=== PATIENT | female | born 1960 | race Caucasian/White ===

== ENCOUNTER → 2018-02-26 | Outpatient (CLI) | payer OTHER ==
--- NOTE | 2018-02-26 09:43 | WOMENS IMAGING REPORT ---
EXAM DESCRIPTION: 3D SCREENING MAMMO BILAT COMPLETED DATE/TIME: 02/26/2018 9:18 am REASON FOR STUDY: SCREENING MAMMO Z12.31 ENCNTR SCREEN MAMMOGRAM FOR MALIGNANT NEOPLASM OF KRZYSZTOF COMPARISON: Baseline study TECHNIQUE: Standard craniocaudal and mediolateral oblique views of each breast recorded using digita l acquisition and breast tomosynthesis. LIMITATIONS: None. FINDINGS: No masses, calcifications or architectural distortion. No areas of suspicion. Read with the assistance of CAD. .[facility] - R2 Cenova Version 1.3 .[facility] - R2 Cenova Version 1.3 .[facility] - R2 Cenova Version 2.4 .[facility] - R2 Cenova Version 2.4 .[facility] - R2 Platen Grinder Version 9.2 IMPRESSION: NORMAL MAMMOGRAM. BIRADS 1. BREAST DENSITY: b. There are scattered areas of fibroglandular density. BIRAD: 1 NEGATIVE RECOMMENDATION: ROUTINE SCREENING Please continue yearly bilateral screening tomosynthesis in February 2019 COMMENT: The patient has been notified of the results by letter per MQSA requirements. Additional no tification policies are in place for contacting patient with suspicious or incomplete findings. Quality ID #[id number]: The [employer] recommends an annual screening mammogram for women aged 40 years or over. This facility utilizes a reminder system to ensure that all patients receive reminder letters, and/or direct phone calls for appointments. This includes reminders for routine scr eening mammograms, diagnostic mammograms, or other Breast Imaging Interventions when appropriate. Th is patient will be placed in the appropriate reminder system. The [employer] (ACR) has developed recommendations for screening MRI of the breast s in certain patient populations, to be used in conjunction with mammography. Breast MRI surveillanc e may be appropriate for women with more than 20% lifetime risk of developing breast cancer as deter mined by genetic testing, significant family history of the disease, or history of mantle radiation f or Hodgkins Disease. ACR Practice Guidelines 2008. DBT Technology DBT is a type of tomographic mammography. With conventional mammography, overlapping breast tissue ma y make lesions difficult to detect, even with good compression. DBT uses an x-ray tube that rotates a round the breast, taking images at different angles. These images are then combined to create thin sl ices of the breast that the radiologist can view as a 3D reconstruction. The [employer] unit can perform full-field digital mammograms (2D imaging); or DBT (3D imaging); or both, in a combination mode that quickly performs both the mammogram and the tomosynthesis scan while the breast is still compressed. PQRS 6045F: Fluoroscopic imaging is not utilized for breast tomosynthesis. TECHNICAL DOCUMENTATION: FINDING NUMBER: (1) ASSESSMENT: (1) JOB ID: [id number] Simple- All Rights Reserved Reading location - IP/workstation name: [email or web address]
== END ==
LOC: WI 08:32
PROVIDERS: ATTEND Nurse Practitioner Primary Care
DX: Z12.31 Encounter for screening mammogram for malignant neoplasm of breast (principal)
CPT/HCPCS: 77063; 77067

== ENCOUNTER 2020-05-26 01:23 | Inpatient (IN) | payer OTHER ==
--- NOTE | 2020-05-26 04:22 | RADIOLOGY REPORT (SQ) ---
CHEST X-RAY 1 VIEW on 05/26/2020 at 3:46 AM CLINICAL INDICATION: Shortness of breath, positive COVID 19 COMPARISON: None FINDINGS: There are bilateral mid and lower lung opacities consistent with COVID 19 pneumonia. Trace pleural effusions may be present. Borderline cardiomegaly is noted. Hilar and mediastinal contours are within normal limits. No bony abnormality is noted. IMPRESSION: Findings consistent with COVID 19 pneumonia.
[2020-05-26 04:55] LABS: ABSOLUTE BASOPHILS # (AUTO) 0.1 10^3/uL (0.0-0.2); ABSOLUTE LYMPHOCYTES (AUTO) 0.9 10^3/uL (0.5-4.7); ABSOLUTE MONOCYTES (AUTO) 0.5 10^3/uL (0.1-1.4); ABSOLUTE NEUT (AUTO) 6.3 10^3/uL (1.7-8.2); BASOPHILS % (AUTO) 0.8 % (0-2); EOSINOPHILS % (AUTO) 0.1 % (0-6); HEMATOCRIT 43.5 % (36.0-47.0); HEMOGLOBIN 14.4 g/dL (12.0-15.5); LYMPHOCYTES % (AUTO) 11.9 % (13-45); MEAN CORPUSCULAR HEMOGLOBIN 26.4 pg (27.0-33.4); MEAN CORPUSCULAR HGB CONC 33.1 g/dL (32.0-36.0); MEAN CORPUSCULAR VOLUME 80 fl (80-97); MONOCYTES % (AUTO) 6.3 % (3-13); PLATELET COUNT 471 10^3/uL (150-450); RED BLOOD COUNT 5.46 10^6/uL (3.72-5.28); RED CELL DISTRIBUTION WIDTH 15.2 % (11.5-14.0); SEGMENTED NEUTROPHILS % (AUTO) 80.9 % (42-78); TOTAL CELLS COUNTED % (AUTO) 100 %; WHITE BLOOD COUNT 7.8 10^3/uL (4.0-10.5)
[2020-05-26 04:58] LABS: VENOUS BLOOD BASE EXCESS -0.6 mmol/L; VENOUS BLOOD HCO3 24.1 mmol/L (20-32); VENOUS BLOOD PH 7.4 (7.30-7.42)
[2020-05-26 05:02] LABS: PROTHROMBIN TIME 13.4 SEC (11.4-15.4)
[2020-05-26 05:03] LABS: PARTIAL THROMBOPLASTIN TIME 34.7 SEC (23.5-35.8)
[2020-05-26 05:16] LABS: D-DIMER < 0.27 ug/mL (0.00-0.50)
[2020-05-26 05:27] LABS: ALBUMIN 4.2 g/dL (3.5-5.0); ALKALINE PHOSPHATASE 124 U/L (38-126); ANION GAP 11 (5-19); ASPARTATE AMINO TRANSFERASE 79 U/L (14-36); BILIRUBIN,DIRECT 0.4 mg/dL (0.0-0.4); BILIRUBIN,TOTAL 0.6 mg/dL (0.2-1.3); BLOOD UREA NITROGEN 13 mg/dL (7-20); CALCIUM 9.9 mg/dL (8.4-10.2); CARBON DIOXIDE 25 mmol/L (22-30); CHLORIDE 105 mmol/L (98-107); GLUCOSE 124 mg/dL (75-110); POTASSIUM 4.8 mmol/L (3.6-5.0); TOTAL PROTEIN 7.7 g/dL (6.3-8.2)
[2020-05-26] MEDS ORDERED: ACETAMINOPHEN 325 MG TABLET PO PRN (05:46)
[2020-05-26] MEDS ORDERED: ONDANSETRON HCL INJ/PF 4 MG/2 ML SDV IV PRN (05:46)
[2020-05-26] MEDS ORDERED: IVERMECTIN 3 MG TABLET PO ONE (05:51)
[2020-05-26] MEDS ORDERED: DEXAMETHASONE SOD PHOS INJ 10 MG/1 ML VIAL IV SCH (06:01)
--- NOTE | 2020-05-26 06:31 | PDOC H&P ---
History of Present Illness Admission Date/PCP: MANUELA ORTIZ NP Patient complains of: Shortness of breath History of Present Illness: ROMERO BACA is a 59 year old female with a history of hypertension and depression who tested positive for COVID-19 on 05/18/2020 now presents to the ED with a progressively worsening shortness of breath. Patient reports that symptoms started about 10 days back and she had fever, generalized body aches, sore throat and dry cough. She states that she was apparently feeling well and her cough was improving but 1 day ago has shortness of breath started getting worse and when she checked here oxygen saturation at home it was ranging around 88 to 90% and came to the ED for further evaluation. Patient states that she still continues to have a dry cough and had a spike of fever about a day ago. She also has associated congestion, and has lost her sense of smell and taste. She denies any nausea, vomiting, abdominal pain, diarrhea or any change in her urinary habits. She was given 1 dose of prednisone yesterday by her primary care before presentation to the ED. Past Medical History Cardiac Medical History: Reports: Hypertension Social History Information Source: Patient Lives with: Family Smoking Status: Never Smoker Frequency of Alcohol Use: None Drugs: None - Advance Directive Resuscitation Status: Full Code Family History Family History: None Parental Family History Reviewed: Yes Children Family History Reviewed: Yes Sibling(s) Family History Reviewed.: Yes Medication/Allergy Allergies/Adverse Reactions: No Known Allergies Allergy (Unverified 05/26/20 05:32) Review of Systems Constitutional: PRESENT: as per HPI Eyes: ABSENT: visual disturbances Ears: ABSENT: hearing changes Cardiovascular: PRESENT: as per HPI. ABSENT: edema, orthropnea, palpitations Respiratory: PRESENT: as per HPI Gastrointestinal: ABSENT: abdominal pain, constipation, diarrhea, hematemesis, hematochezia, nausea, vomiting Genitourinary: ABSENT: dysuria, hematuria Musculoskeletal: ABSENT: joint swelling Integumentary: ABSENT: rash, wounds Neurological: ABSENT: abnormal gait, abnormal speech, confusion, dizziness, focal weakness, syncope Psychiatric: ABSENT: anxiety, depression, homidical ideation, suicidal ideation Endocrine: ABSENT: cold intolerance, heat intolerance, polydipsia, polyuria Hematologic/Lymphatic: ABSENT: easy bleeding, easy bruising Physical Exam Vital Signs: Temp Pulse Resp BP Pulse Ox 97.7 F 104 H 22 H 130/103 H 92 05/26/20 01:29 05/26/20 01:29 05/26/20 05:01 05/26/20 05:01 05/26/20 05:01 Intake & Output 05/24/20 05/25/20 05/26/20 06:59 06:59 06:59 Weight 86.2 kg Additional comments: GENERAL APPEARANCE: Alert and oriented x3, comfortably lying on her bed, saturating above 95% on 2 L HEENT: Normocephalic and atraumatic. No scleral icterus. Moist oral mucosa NECK: Supple. No lymphadenopathy or tenderness. No carotid bruit. No JVD CHEST: Symmetric. Nontender to palpation. LUNGS: Clear with good air entry bilaterally. No wheezing or crackles HEART: Regular rate and rhythm with normal S1 and S2. No murmurs, gallops, or rubs. ABDOMEN: soft, active bowel sounds, no direct or rebound tenderness. No organomegaly detected. No CVA tenderness EXTREMITIES: No cyanosis, clubbing, or edema. MUSCULOSKELETAL: No deformity, atrophy or swelling noted PSYCHIATRIC: Recent and remote memory is intact. Appropriate mood and affect. SKIN: Warm, dry, and well perfused. No lesions or rashes are noted. NEUROLOGIC: No focal sensory or motor deficits are noted. Results Laboratory Results: 05/26/20 04:22 05/26/20 04:22 05/26/20 05/26/20 05/26/20 04:22 04:22 04:22 WBC 7.8 RBC 5.46 H Hgb 14.4 Hct 43.5 MCV 80 MCH 26.4 L MCHC 33.1 RDW 15.2 H Plt Count 471 H Seg Neutrophils % 80.9 H VBG pH 7.40 VBG pCO2 40.0 VBG HCO3 24.1 VBG Base Excess -0.6 Sodium 140.7 Potassium 4.8 Chloride 105 Carbon Dioxide 25 Anion Gap 11 BUN 13 Creatinine 0.69 Est GFR ( Amer) > 60 Glucose 124 H Calcium 9.9 Total Bilirubin 0.6 AST 79 H Alkaline Phosphatase 124 Total Protein 7.7 Albumin 4.2 Impressions: Chest X-Ray 05/26/20 03:31 IMPRESSION: Findings consistent with COVID 19 pneumonia. Assessment and Plan - Diagnosis (1) Acute respiratory failure with hypoxia Is this a current diagnosis for this admission?: Yes Plan: Patient presents with worsening shortness of breath Tested positive for COVID-19 on 05/18 Oxygen saturation was 88 to 90% on room air presentation Currently requiring 2 L intranasal oxygen to maintain saturation above 94% Chest x-ray shows bilateral mid and lower lobe patchy opacities consistent with COVID-19 pneumonia Started on dexamethasone, zinc, vitamin C, vitamin D Gave first dose of ivermectin Ordered CRP, CK, LDH, ferritin levels Closely monitor respiratory parameters for any sign of decompensation (2) Pneumonia due to COVID-19 virus Is this a current diagnosis for this admission?: Yes Plan: Currently admitted with hypoxic respiratory failure from COVID-19 pneumonia Continue management of COVID-19 pneumonia as stated above (3) Hypertension Is this a current diagnosis for this admission?: Yes Plan: continue home medication, losartan 12.5 mg daily Low-sodium diet Continue monitoring vitals (4) Depression Is this a current diagnosis for this admission?: Yes Plan: Continue Wellbutrin (5) Obesity (BMI 30.0-34.9) Is this a current diagnosis for this admission?: Yes Plan: Encourage regular exercise and dietary modification to attain optimal weight - Time Time Spent with patient: 35 or more minutes Total Critical Time (Minutes): 45 Medications reviewed and adjusted accordingly: Yes Anticipated Discharge Disposition: Home, Self Care Anticipated Discharge Timeframe: within 72 hours - Inpatient Certification Based on my medical assessment, after consideration of the patient's comorbidities, presenting symptoms, or acuity I expect that the services needed warrant INPATIENT care.: Yes I certify that my determination is in accordance with my understanding of Medicare's requirements for reasonable and necessary INPATIENT services [42 CFR 412.3e].: Yes Medical Necessity: Failure to Improve With Outpatient Therapy, Need Close Monitoring Due to Risk of Patient Decompensation, Risk of Complication if Not Cared For in Hospital Post Hospital Care: D/C or Transfer Summary
--- NOTE | 2020-05-26 06:40 | ER Document Report ---
ED General - General Chief Complaint: Shortness Of Breath Stated Complaint: SHORTNESS OF BREATH Notes: 59-year-old female history of hypertension presents with worsening shortness of breath since Covid diagnosis approximately 8 days ago. Patient had onset of symptoms including cough fever malaise on May 16 and had positive Covid test on May 18. Patient has been monitoring symptoms at home and has been using pulse oximeter and when she felt worsening shortness of breath and pulse ox was 88-91 when she was at rest at home she came to the ED. Patient endorses dry cough. Patient denies any chest pain, weakness, dizziness, fainting, productive cough, fever, asthma/smoking/COPD history, lower extremity edema, DVT/PE/hypercoagulability history TRAVEL OUTSIDE OF THE [place] IN LAST 30 DAYS: No - Related Data Allergies/Adverse Reactions: No Known Allergies Allergy (Unverified 05/26/20 05:32) Home Medications: prednisone, nyqil, losartan, well butrin, nexium Past Medical History - General Information source: Patient - Social History Smoking Status: Never Smoker Lives with: Family Family History: None - Past Medical History Cardiac Medical History: Reports: Hx Hypertension Review of Systems - Review of Systems Notes: REVIEW OF SYSTEMS: CONSTITUTIONAL : Denies fever, chills, or sweats. EENT: + recent cold symptoms, denies throat pain CARDIOVASCULAR: Denies chest pain, KERWIN RESPIRATORY: + cough, + shortness of breath. GASTROINTESTINAL: Denies abdominal pain, nausea/vomiting. GENITOURINARY: Denies difficulty urinating, painful urination. MUSCULOSKELETAL: Denies neck pain, back pain. SKIN: Denies rash or skin lesions. HEMATOLOGIC : Denies easy bruising or bleeding. LYMPHATIC: Denies swollen, enlarged glands. NEUROLOGICAL: Denies headache, denies change in gait. Physical Exam - Vital signs Vitals: Temp Pulse Resp BP Pulse Ox 97.7 F 104 H 23 H 179/94 H 93 05/26/20 01:05/26/20 01:05/26/20 01:05/26/20 01:05/26/20 01:29 - Notes Notes: PHYSICAL EXAMINATION: GENERAL: Uncomfortable but nontoxic appearing middle-aged woman sitting up in stretcher with nasal cannula in place HEAD: Atraumatic, normocephalic. EYES: Pupils equal round and appropriate constriction, sclera anicteric, conjunctiva are normal. ENT: nares patent, moist mucous membranes. NECK: Normal range of motion, supple without lymphadenopathy LUNGS: Few scattered rhonchi bilaterally, no wheezing, good air movement, tachypneic, only able to say 2-3 words at a time without taking breath, abdominal muscle use, managing secretions, no tripoding HEART: Regular rate and rhythm without murmurs ABDOMEN: Soft, nontender, no guarding, no masses, no CVAT EXTREMITIES: Normal range of motion, no pitting or edema. No cyanosis. NEUROLOGICAL: Awake, alert, conversing appropriately, moves all extremities spontaneously. PSYCH: Normal mood, normal affect. SKIN: Warm, Dry, normal turgor, no rashes or lesions noted. Course - Re-evaluation Re-evalutation: 05/26/20 06:37 Patient with worsening shortness of breath with known Covid infection likely secondary to Covid pneumonia but given hypercoagulability associated with Covid infection I also obtain D-dimer to rule out PE. Given that patient has no other PE risk factors this is sufficient to rule out PE in the setting and D-dimer was negative. Patient feels significantly improved on nasal cannula and is maintaining normal saturations, but given that patient unable to speak in full sentences not appropriate for discharge at this time. Presented patient to Dr. Osorio who has accepted patient to medicine. No signs of closely impending respiratory failure at this time, but this may change and requires further observation inpatient. - Vital Signs Vital signs: Temp Pulse Resp BP Pulse Ox 97.7 F 104 H 22 H 130/103 H 92 05/26/20 01:29 05/26/20 01:29 05/26/20 05:01 05/26/20 05:01 05/26/20 05:01 - Laboratory Results Result Diagrams: 05/26/20 04:22 05/26/20 04:22 Laboratory Results Interpreted: 05/26/20 05/26/20 04:22 04:22 RBC 5.46 H MCH 26.4 L RDW 15.2 H Plt Count 471 H Lymph % (Auto) 11.9 L Seg Neutrophils % 80.9 H Glucose 124 H AST 79 H ALT 64 H Critical Laboratory Results Reviewed: No Critical Results - Radiology Results Critical Radiology Results Reviewed: No Critical Results Discharge - Discharge Clinical Impression: Pneumonia due to COVID-19 virus Disposition: ADMITTED INPATIENT [facility] Medical [facility]
--- NOTE | 2020-05-26 09:11 | PDOC PROGRESS REPORT ---
Subjective Date:: 05/26/20 Subjective:: Patient is resting in bed. She is on nasal cannula. She states that she feels better than yesterday. Her mouth is dry but otherwise she has no new complaints. Reason For Visit: ACUTE HYPOXIC RESPIRATORY FAILURE Physical Exam Vital Signs: Temp Pulse Resp BP Pulse Ox 97.7 F 104 H 22 H 130/103 H 92 05/26/20 01:29 05/26/20 01:29 05/26/20 05:01 05/26/20 05:01 05/26/20 05:01 Intake & Output 05/25/20 05/26/20 05/27/20 06:59 06:59 06:59 Weight 86.2 kg General appearance: PRESENT: cooperative, mild distress, well-developed Head exam: PRESENT: atraumatic, normocephalic Eye exam: PRESENT: conjunctiva pink, EOMI. ABSENT: scleral icterus Ear exam: PRESENT: normal external ear exam. ABSENT: bleeding, drainage Mouth exam: PRESENT: dry mucosa, tongue midline Respiratory exam: PRESENT: clear to auscultation rebeca, symmetrical, unlabored. ABSENT: rales, rhonchi, tachypnea, wheezes Cardiovascular exam: PRESENT: RRR, +S1, +S2. ABSENT: bradycardia, diastolic murmur, irregular rhythm, systolic murmur, tachycardia GI/Abdominal exam: PRESENT: normal bowel sounds, soft. ABSENT: ascites, distended, guarding, tenderness Rectal exam: PRESENT: deferred Gentrourinary exam: ABSENT: indwelling catheter Extremities exam: PRESENT: full ROM. ABSENT: clubbing, pedal edema Musculoskeletal exam: PRESENT: ambulatory, normal inspection. ABSENT: deformity, dislocation Neurological exam: PRESENT: alert, awake, oriented to person, oriented to place, oriented to time, oriented to situation, CN II-XII grossly intact. ABSENT: altered Psychiatric exam: PRESENT: appropriate affect. ABSENT: agitated, anxious Focused psych exam: ABSENT: catatonic, delusional, paranoid, restlessness Skin exam: PRESENT: dry, normal color, warm. ABSENT: rash Results Laboratory Results: 05/26/20 04:22 05/26/20 04:22 05/26/20 05/26/20 05/26/20 04:22 04:22 04:22 WBC 7.8 RBC 5.46 H Hgb 14.4 Hct 43.5 MCV 80 MCH 26.4 L MCHC 33.1 RDW 15.2 H Plt Count 471 H Seg Neutrophils % 80.9 H VBG pH 7.40 VBG pCO2 40.0 VBG HCO3 24.1 VBG Base Excess -0.6 Sodium 140.7 Potassium 4.8 Chloride 105 Carbon Dioxide 25 Anion Gap 11 BUN 13 Creatinine 0.69 Est GFR ( Amer) > 60 Glucose 124 H Calcium 9.9 Ferritin Total Bilirubin 0.6 AST 79 H Alkaline Phosphatase 124 C-Reactive Protein Total Protein 7.7 Albumin 4.2 05/26/20 04:22 WBC RBC Hgb Hct MCV MCH MCHC RDW Plt Count Seg Neutrophils % VBG pH VBG pCO2 VBG HCO3 VBG Base Excess Sodium Potassium Chloride Carbon Dioxide Anion Gap BUN Creatinine Est GFR ( Amer) Glucose Calcium Ferritin 115.00 Total Bilirubin AST Alkaline Phosphatase C-Reactive Protein 25.0 H Total Protein Albumin 05/26/20 04:22 Creatine Kinase 108 Impressions: Chest X-Ray 05/26/20 03:31 IMPRESSION: Findings consistent with COVID 19 pneumonia. Assessment and Plan - Diagnosis (1) Acute respiratory failure with hypoxia Is this a current diagnosis for this admission?: Yes (2) Pneumonia due to COVID-19 virus Is this a current diagnosis for this admission?: Yes (3) Hypertension Is this a current diagnosis for this admission?: Yes (4) Depression Qualifiers: Depression Type: unspecified Qualified Code(s): F32.9 - Major depressive disorder, single episode, unspecified Is this a current diagnosis for this admission?: Yes (5) Obesity (BMI 30.0-34.9) Is this a current diagnosis for this admission?: Yes (6) GERD (gastroesophageal reflux disease) Qualifiers: Esophagitis presence: without esophagitis Qualified Code(s): K21.9 - Gastro-esophageal reflux disease without esophagitis Is this a current diagnosis for this admission?: Yes - Plan Summary Summary: (1) Acute respiratory failure with hypoxia (2) Pneumonia due to COVID-19 virus (3) Hypertension (4) Depression (5) Obesity (BMI 30.0-34.9) (6) GERD 05/26/2020 Acute respiratory failure with hypoxia due to Covid pneumonia-I did change the dexamethasone to Solu-Medrol. I have ordered the second dose of ivermectin for tomorrow. We will continue on supplements and attempt to wean back to her home oxygen levels which I believe is 1 L/min. We will add Flonase. Hypertension-I am not sure why the initial blood pressures were so high. She does only take Lopressor 12.5 mg once a day. I have increased this to 25 mg. She does have as needed medications available if needed. Depression-continue Wellbutrin Obesity-BMI 33.7. Obesity is the known and significant risk factor for c omplications due to Covid pneumonia. Will monitor closely. Acid reflux-the patient is on Nexium at home. We will substitute pantoprazole. - Time Time Spent with patient: 25-34 minutes Medications reviewed and adjusted accordingly: Yes Anticipated Discharge Disposition: Home, Self Care Anticipated Discharge Timeframe: Unknown
[2020-05-26] MEDS ORDERED: FAMOTIDINE 20 MG TABLET PO SCH (10:00)
[2020-05-26] MEDS ORDERED: LOSARTAN POTASSIUM 25 MG TABLET PO SCH (10:00)
[2020-05-26] MEDS: BUPROPION HCL 100 MG TABLET PO SCH (10:54)
[2020-05-26] MEDS: LOSARTAN POTASSIUM 25 MG TABLET PO SCH (10:54)
[2020-05-26] MEDS: ASCORBIC ACID 500 MG TABLET PO SCH ×2 (10:54→17:21)
[2020-05-26] MEDS: CHOLECALCIFEROL (D3) 1,000 UNIT (25 MCG) TABLET PO SCH (10:54)
[2020-05-26] MEDS: METHYLPREDNISOLONE INJ 40 MG/1 ML SDV IV SCH ×2 (10:54→21:22)
[2020-05-26] MEDS: ZINC SULFATE 220 MG CAPSULE PO SCH (10:54)
[2020-05-26] MEDS: ENOXAPARIN SODIUM INJ 40 MG/0.4 ML DISP.SYRIN SUBCUT SCH (10:55)
[2020-05-26] MEDS: MELATONIN 5 MG TABLET PO SCH (21:22)
[2020-05-27 06:03] LABS: ABSOLUTE BASOPHILS # (AUTO) 0.3 10^3/uL (0.0-0.2); ABSOLUTE LYMPHOCYTES (AUTO) 1.4 10^3/uL (0.5-4.7); ABSOLUTE MONOCYTES (AUTO) 0.6 10^3/uL (0.1-1.4); ABSOLUTE NEUT (AUTO) 16.7 10^3/uL (1.7-8.2); BASOPHILS % (AUTO) 1.3 % (0-2); HEMATOCRIT 40.3 % (36.0-47.0); HEMOGLOBIN 13.4 g/dL (12.0-15.5); LYMPHOCYTES % (AUTO) 7.2 % (13-45); MEAN CORPUSCULAR HEMOGLOBIN 26.4 pg (27.0-33.4); MEAN CORPUSCULAR HGB CONC 33.2 g/dL (32.0-36.0); MEAN CORPUSCULAR VOLUME 80 fl (80-97); MONOCYTES % (AUTO) 3.2 % (3-13); PLATELET COUNT 511 10^3/uL (150-450); RED BLOOD COUNT 5.07 10^6/uL (3.72-5.28); RED CELL DISTRIBUTION WIDTH 14.8 % (11.5-14.0); SEGMENTED NEUTROPHILS % (AUTO) 88.3 % (42-78); TOTAL CELLS COUNTED % (AUTO) 100 %
[2020-05-27 06:07] LABS: WHITE BLOOD COUNT 18.9 10^3/uL (4.0-10.5)
[2020-05-27] MEDS: PANTOPRAZOLE SODIUM 40 MG TABLET.DR PO SCH (06:10)
[2020-05-27 06:16] LABS: ALBUMIN 3.9 g/dL (3.5-5.0); ALKALINE PHOSPHATASE 119 U/L (38-126); ANION GAP 12 (5-19); ASPARTATE AMINO TRANSFERASE 50 U/L (14-36); BILIRUBIN,DIRECT 0.2 mg/dL (0.0-0.4); BILIRUBIN,TOTAL 0.4 mg/dL (0.2-1.3); BLOOD UREA NITROGEN 20 mg/dL (7-20); CARBON DIOXIDE 22 mmol/L (22-30); CHLORIDE 104 mmol/L (98-107); GLUCOSE 180 mg/dL (75-110); POTASSIUM 4.6 mmol/L (3.6-5.0); TOTAL PROTEIN 7.2 g/dL (6.3-8.2)
[2020-05-27] MEDS ORDERED: IVERMECTIN 3 MG TABLET PO ONE (10:00)
[2020-05-27] MEDS: METHYLPREDNISOLONE INJ 40 MG/1 ML SDV IV SCH ×2 (11:05→21:15)
[2020-05-27] MEDS: LOSARTAN POTASSIUM 25 MG TABLET PO SCH (11:06)
[2020-05-27] MEDS: ENOXAPARIN SODIUM INJ 40 MG/0.4 ML DISP.SYRIN SUBCUT SCH (11:06)
[2020-05-27] MEDS: ZINC SULFATE 220 MG CAPSULE PO SCH (11:07)
[2020-05-27] MEDS: CHOLECALCIFEROL (D3) 1,000 UNIT (25 MCG) TABLET PO SCH (11:07)
[2020-05-27] MEDS: BUPROPION HCL 100 MG TABLET PO SCH (11:07)
[2020-05-27] MEDS: ASCORBIC ACID 500 MG TABLET PO SCH ×2 (11:07→17:00)
--- NOTE | 2020-05-27 13:44 | PDOC PROGRESS REPORT ---
Subjective Date:: 05/27/20 Subjective:: Patient was seen and examined at bedside. She was sitting in the chair on 2L of nasal cannula. She is doing well otherwise, in good spirits, has good appetite. Reason For Visit: ACUTE HYPOXIC RESPIRATORY FAILURE Physical Exam Vital Signs: Temp Pulse Resp BP Pulse Ox 98.6 F 76 20 148/80 H 96 05/27/20 11:41 05/27/20 11:41 05/27/20 11:41 05/27/20 11:41 05/27/20 11:41 Intake & Output 05/26/20 05/27/20 05/28/20 06:59 06:59 06:59 Intake Total 1442 Balance 1442 Weight 86.2 kg 85.9 kg General appearance: PRESENT: cooperative, mild distress Head exam: PRESENT: atraumatic, normocephalic Eye exam: PRESENT: EOMI, PERRLA Mouth exam: PRESENT: moist Neck exam: PRESENT: full ROM Respiratory exam: PRESENT: clear to auscultation rebeca, symmetrical, unlabored Cardiovascular exam: PRESENT: RRR, +S1, +S2 Pulses: PRESENT: +2 pedal pulses bilateral GI/Abdominal exam: PRESENT: normal bowel sounds, soft. ABSENT: rebound, tende rness Extremities exam: PRESENT: full ROM Musculoskeletal exam: PRESENT: full ROM Neurological exam: PRESENT: alert, awake, oriented to person, oriented to place, oriented to time, oriented to situation Psychiatric exam: PRESENT: normal mood Skin exam: PRESENT: normal color Results Laboratory Results: 05/27/20 05:23 05/27/20 05:23 05/27/20 05/27/20 05:23 05:23 WBC 18.9 H D RBC 5.07 Hgb 13.4 Hct 40.3 MCV 80 MCH 26.4 L MCHC 33.2 RDW 14.8 H Plt Count 511 H Seg Neutrophils % 88.3 H Sodium 137.8 Potassium 4.6 Chloride 104 Carbon Dioxide 22 Anion Gap 12 BUN 20 Creatinine 0.80 Est GFR ( Amer) > 60 Glucose 180 H Calcium 10.0 Magnesium 2.0 Total Bilirubin 0.4 AST 50 H Alkaline Phosphatase 119 Total Protein 7.2 Albumin 3.9 05/26/20 04:22 Creatine Kinase 108 Impressions: Chest X-Ray 05/26/20 03:31 IMPRESSION: Findings consistent with COVID 19 pneumonia. Assessment and Plan - Diagnosis (1) Acute respiratory failure with hypoxia Is this a current diagnosis for this admission?: Yes (2) Depression Qualifiers: Depression Type: unspecified Qualified Code(s): F32.9 - Major depressive disorder, single episode, unspecified Is this a current diagnosis for this admission?: Yes (3) GERD (gastroesophageal reflux disease) Qualifiers: Esophagitis presence: without esophagitis Qualified Code(s): K21.9 - Gastro-esophageal reflux disease without esophagitis Is this a current diagnosis for this admission?: Yes (4) Hypertension Is this a current diagnosis for this admission?: Yes (5) Obesity (BMI 30.0-34.9) Is this a current diagnosis for this admission?: Yes (6) Pneumonia due to COVID-19 virus Is this a current diagnosis for this admission?: Yes - Plan Summary Summary: (1) Acute respiratory failure with hypoxia (2) Pneumonia due to COVID-19 virus (3) Hypertension (4) Depression (5) Obesity (BMI 30.0-34.9) (6) GERD 05/26/2020 Acute respiratory failure with hypoxia due to Covid pneumonia-currently down to 1L of NC and doing well so far. received her 2nd dose of Ivermectin today. If she can be weaned off O2 by tomorrow I think she can be eventually discharged as early as tomorrow Hypertension-BP 148/80 which is acceptable. Depression-continue Wellbutrin Obesity-BMI 33.7. Obesity is the known and significant risk factor for complications due to Covid pneumonia. Will monitor closely. Acid reflux-the patient is on Nexium at home. We will substitute pantoprazole. - Time Time Spent with patient: 15-24 minutes Medications reviewed and adjusted accordingly: Yes Anticipated Discharge Disposition: Home, Self Care Anticipated Discharge Timeframe: within 48 hours
[2020-05-27] MEDS: MELATONIN 5 MG TABLET PO SCH (21:15)
[2020-05-28] MEDS: PANTOPRAZOLE SODIUM 40 MG TABLET.DR PO SCH (05:04)
[2020-05-28 06:34] LABS: ABSOLUTE BASOPHILS # (AUTO) 0.1 10^3/uL (0.0-0.2); ABSOLUTE LYMPHOCYTES (AUTO) 1.6 10^3/uL (0.5-4.7); ABSOLUTE MONOCYTES (AUTO) 0.5 10^3/uL (0.1-1.4); BASOPHILS % (AUTO) 0.7 % (0-2); HEMATOCRIT 38.7 % (36.0-47.0); HEMOGLOBIN 12.8 g/dL (12.0-15.5); LYMPHOCYTES % (AUTO) 8.5 % (13-45); MEAN CORPUSCULAR HEMOGLOBIN 26.3 pg (27.0-33.4); MEAN CORPUSCULAR HGB CONC 33.1 g/dL (32.0-36.0); MEAN CORPUSCULAR VOLUME 79 fl (80-97); MONOCYTES % (AUTO) 2.5 % (3-13); PLATELET COUNT 512 10^3/uL (150-450); RED BLOOD COUNT 4.88 10^6/uL (3.72-5.28); RED CELL DISTRIBUTION WIDTH 15.1 % (11.5-14.0); SEGMENTED NEUTROPHILS % (AUTO) 88.3 % (42-78); TOTAL CELLS COUNTED % (AUTO) 100 %; WHITE BLOOD COUNT 19.3 10^3/uL (4.0-10.5)
[2020-05-28 06:54] LABS: ALBUMIN 3.5 g/dL (3.5-5.0); ALKALINE PHOSPHATASE 102 U/L (38-126); ANION GAP 11 (5-19); ASPARTATE AMINO TRANSFERASE 45 U/L (14-36); BILIRUBIN,DIRECT 0.2 mg/dL (0.0-0.4); BILIRUBIN,TOTAL 0.3 mg/dL (0.2-1.3); BLOOD UREA NITROGEN 24 mg/dL (7-20); CALCIUM 9.3 mg/dL (8.4-10.2); CARBON DIOXIDE 23 mmol/L (22-30); CHLORIDE 106 mmol/L (98-107); GLUCOSE 148 mg/dL (75-110); POTASSIUM 4.8 mmol/L (3.6-5.0)
[2020-05-28] MEDS: ENOXAPARIN SODIUM INJ 40 MG/0.4 ML DISP.SYRIN SUBCUT SCH (10:18)
[2020-05-28] MEDS: METHYLPREDNISOLONE INJ 40 MG/1 ML SDV IV SCH ×2 (10:18→21:01)
[2020-05-28] MEDS: CHOLECALCIFEROL (D3) 1,000 UNIT (25 MCG) TABLET PO SCH (10:19)
[2020-05-28] MEDS: LOSARTAN POTASSIUM 25 MG TABLET PO SCH (10:19)
[2020-05-28] MEDS: ZINC SULFATE 220 MG CAPSULE PO SCH (10:19)
[2020-05-28] MEDS: ASCORBIC ACID 500 MG TABLET PO SCH ×2 (10:19→17:48)
[2020-05-28] MEDS: BUPROPION HCL 100 MG TABLET PO SCH (10:19)
--- NOTE | 2020-05-28 15:40 | PDOC PROGRESS REPORT ---
Subjective Date:: 05/28/20 Subjective:: The patient is sitting up in the chair. She is now on room air. She reports that she got very short of breath when she walked to the bathroom. Her sat dropped into the mid 80s. She recovered fairly quickly. She otherwise has no new complaints. Reason For Visit: ACUTE HYPOXIC RESPIRATORY FAILURE Physical Exam Vital Signs: Temp Pulse Resp BP Pulse Ox 98.0 F 93 20 152/87 H 91 L 05/28/20 12:30 05/28/20 14:00 05/28/20 12:30 05/28/20 12:30 05/28/20 12:30 Intake & Output 05/27/20 05/28/20 05/29/20 06:59 06:59 06:59 Intake Total 1442 1050 Balance 1442 1050 Weight 85.9 kg 87.2 kg General appearance: PRESENT: no acute distress, cooperative, well-developed Head exam: PRESENT: atraumatic, normocephalic Ear exam: PRESENT: normal external ear exam. ABSENT: bleeding, drainage Respiratory exam: PRESENT: clear to auscultation rebeca, symmetrical, unlabored. ABSENT: accessory muscle use, rales, rhonchi, tachypnea, wheezes Cardiovascular exam: PRESENT: RRR, +S1, +S2. ABSENT: diastolic murmur, irregular rhythm, systolic murmur, tachycardia GI/Abdominal exam: PRESENT: normal bowel sounds, soft. ABSENT: distended, guarding, tenderness Rectal exam: PRESENT: deferred Gentrourinary exam: ABSENT: indwelling catheter Extremities exam: ABSENT: pedal edema Musculoskeletal exam: PRESENT: ambulatory, normal inspection. ABSENT: deformity, dislocation Neurological exam: PRESENT: alert, awake, oriented to person, oriented to place, oriented to time, oriented to situation, CN II-XII grossly intact. ABSENT: altered Psychiatric exam: PRESENT: appropriate affect. ABSENT: agitated, anxious Focused psych exam: ABSENT: delusional, paranoid, restlessness Skin exam: PRESENT: dry, normal color, warm. ABSENT: rash Results Laboratory Results: 05/28/20 05:48 05/28/20 05:48 05/28/20 05/28/20 05:48 05:48 WBC 19.3 H RBC 4.88 Hgb 12.8 Hct 38.7 MCV 79 L MCH 26.3 L MCHC 33.1 RDW 15.1 H Plt Count 512 H Seg Neutrophils % 88.3 H Sodium 140.0 Potassium 4.8 Chloride 106 Carbon Dioxide 23 Anion Gap 11 BUN 24 H Creatinine 0.73 Est GFR ( Amer) > 60 Glucose 148 H Calcium 9.3 Total Bilirubin 0.3 AST 45 H Alkaline Phosphatase 102 Total Protein 6.0 L Albumin 3.5 05/26/20 04:22 Creatine Kinase 108 Impressions: Chest X-Ray 05/26/20 03:31 IMPRESSION: Findings consistent with COVID 19 pneumonia. Assessment and Plan - Diagnosis (1) Acute respiratory failure with hypoxia Is this a current diagnosis for this admission?: Yes (2) Pneumonia due to COVID-19 virus Is this a current diagnosis for this admission?: Yes (3) Hypertension Is this a current diagnosis for this admission?: Yes (4) Depression Qualifiers: Depression Type: unspecified Qualified Code(s): F32.9 - Major depressive disorder, single episode, unspecified Is this a current diagnosis for this admission?: Yes (5) Obesity (BMI 30.0-34.9) Is this a current diagnosis for this admission?: Yes (6) GERD (gastroesophageal reflux disease) Qualifiers: Esophagitis presence: without esophagitis Qualified Code(s): K21.9 - Gastro-esophageal reflux disease without esophagitis Is this a current diagnosis for this admission?: Yes - Plan Summary Summary: (1) Acute respiratory failure with hypoxia (2) Pneumonia due to COVID-19 virus (3) Hypertension (4) Depression (5) Obesity (BMI 30.0-34.9) (6) GERD 05/26/2020 Acute respiratory failure with hypoxia due to Covid pneumonia-currently down to 1L of NC and doing well so far. received her 2nd dose of Ivermectin today. If she can be weaned off O2 by tomorrow I think she can be eventually discharged as early as tomorrow Hypertension-BP 148/80 which is acceptable. Depression-continue Wellbutrin Obesity-BMI 33.7. Obesity is the known and significant risk factor for complications due to Covid pneumonia. Will monitor closely. Acid reflux-the patient is on Nexium at home. We will substitute pantoprazole. 05/28/2020 Acute respiratory failure with hypoxia due to Covid pneumonia-she is on room air today but still desaturates with minimal exertion. She is anxious for home but I elected and explained to her that spending 1 more night to make sure that she is safe on room air would be prudent. She is home alone. I will decrease her steroids today in anticipation of discharge tomorrow. Hypertension-I will increase her losartan to 50 mg daily in anticipation of resuming Cozaar 50/12.5. Depression-continue Wellbutrin Acid reflux-currently on Protonix. Will return to Nexium at discharge. Obesity-encourage exercise post recovery. She should already be on a low-fat low-salt diet. - Time Time Spent with patient: 15-24 minutes Medications reviewed and adjusted accordingly: Yes Anticipated Discharge Disposition: Home, Self Care Anticipated Discharge Timeframe: within 24 hours
[2020-05-28] MEDS: MELATONIN 5 MG TABLET PO SCH (21:01)
[2020-05-29 05:52] LABS: HEMATOCRIT 39.3 % (36.0-47.0); MEAN CORPUSCULAR HEMOGLOBIN 26.3 pg (27.0-33.4); MEAN CORPUSCULAR HGB CONC 33.1 g/dL (32.0-36.0); MEAN CORPUSCULAR VOLUME 79 fl (80-97); PLATELET COUNT 510 10^3/uL (150-450); RED BLOOD COUNT 4.95 10^6/uL (3.72-5.28)
[2020-05-29 05:54] LABS: ALBUMIN 3.5 g/dL (3.5-5.0); ALKALINE PHOSPHATASE 95 U/L (38-126); ANION GAP 11 (5-19); ASPARTATE AMINO TRANSFERASE 42 U/L (14-36); BILIRUBIN,DIRECT 0.2 mg/dL (0.0-0.4); BILIRUBIN,TOTAL 0.5 mg/dL (0.2-1.3); BLOOD UREA NITROGEN 29 mg/dL (7-20); CALCIUM 9.4 mg/dL (8.4-10.2); CARBON DIOXIDE 23 mmol/L (22-30); CHLORIDE 105 mmol/L (98-107); GLUCOSE 162 mg/dL (75-110); POTASSIUM 4.6 mmol/L (3.6-5.0); TOTAL PROTEIN 6.4 g/dL (6.3-8.2)
[2020-05-29] MEDS: PANTOPRAZOLE SODIUM 40 MG TABLET.DR PO SCH (05:58)
[2020-05-29 06:48] LABS: ABSOLUTE LYMPHOCYTES# (MANUAL) 1.5 10^3/uL (0.5-4.7); ABSOLUTE MONOCYTES # (MANUAL) 1.1 10^3/uL (0.1-1.4); BASOPHILS % (MANUAL) 0 % (0-2); EOSINOPHILS % (MANUAL) 0 % (0-6); LYMPHOCYTES % (MANUAL) 7 % (13-45); MONOCYTES % (MANUAL) 5 % (3-13); SEGMENTED NEUTROPHILS % (MAN) 88 % (42-78); TOTAL CELLS COUNTED 100
[2020-05-29 06:49] LABS: ANISOCYTOSIS SLIGHT; OVALOCYTES SLIGHT; PLATELET COMMENT ADEQUATE; POIKILOCYTOSIS SLIGHT
[2020-05-29] MEDS: ZINC SULFATE 220 MG CAPSULE PO SCH (09:31)
[2020-05-29] MEDS: CHOLECALCIFEROL (D3) 1,000 UNIT (25 MCG) TABLET PO SCH (09:32)
[2020-05-29] MEDS: ASCORBIC ACID 500 MG TABLET PO SCH (09:32)
[2020-05-29] MEDS: BUPROPION HCL 100 MG TABLET PO SCH (09:32)
[2020-05-29] MEDS: METHYLPREDNISOLONE INJ 40 MG/1 ML SDV IV SCH (09:33)
[2020-05-29] MEDS: ENOXAPARIN SODIUM INJ 40 MG/0.4 ML DISP.SYRIN SUBCUT SCH (09:34)
[2020-05-29] MEDS ORDERED: LOSARTAN POTASSIUM 25 MG TABLET PO SCH (10:00)
[2020-05-29] MEDS ORDERED: LOSARTAN POTASSIUM 50 MG TABLET PO SCH (10:00)
[2020-05-29 10:54] VITALS: BP 154/85
--- NOTE | 2020-05-29 19:25 | PDOC DISCHARGE SUMMARY ---
Impression - Admit/DC Date/PCP Admission Date/Primary Care Provider: 05/26/20 06:02 MANUELA ORTIZ NP Discharge Date: 05/29/20 - Discharge Diagnosis (1) Acute respiratory failure with hypoxia Is this a current diagnosis for this admission?: Yes (2) Depression Is this a current diagnosis for this admission?: Yes (3) GERD (gastroesophageal reflux disease) Is this a current diagnosis for this admission?: Yes (4) Hypertension Is this a current diagnosis for this admission?: Yes (5) Obesity (BMI 30.0-34.9) Is this a current diagnosis for this admission?: Yes (6) Pneumonia due to COVID-19 virus Is this a current diagnosis for this admission?: Yes - Additional Information Resuscitation Status: Full Code Discharge Diet: Cardiac Discharge Activity: Activity As Tolerated, Balance Activity w/Rest, Slowly Increase Activity Referrals: MANUELA ORTIZ NP [Primary Care Provider] - 06/14/20 10:00 am Prescriptions: Prednisone [Deltasone 20 mg Tablet] 20 mg PO ASDIR PRN #20 tablet PRN Reason: Ascorbic Acid [Vitamin C 500 mg Tablet] 500 mg PO BID #60 tablet Cholecalciferol (Vitamin D3) [Vitamin D3 1000 Unit Tablet] 1,000 unit PO DAILY #30 tablet Zinc Sulfate [Zinc-220 Capsule] 220 mg PO DAILY #30 capsule Home Medications: Bupropion HCl [Wellbutrin 100 mg Tablet] 100 mg PO BID 05/26/20 Esomeprazole Magnesium [Nexium] 20 mg PO DAILY 05/26/20 Lorazepam 0.5 mg PO BIDP PRN 05/26/20 Losartan/Hydrochlorothiazide [Losartan-Hctz 50-12.5 mg Tab] 1 tab PO DAILY 05/26/20 Phentermine HCl 37.5 mg PO QAM 05/26/20 Acetaminophen [Tylenol 325 mg Tablet] 650 mg PO Q6HP PRN tablet 05/29/20 Ascorbic Acid [Vitamin C 500 mg Tablet] 500 mg PO BID #60 tablet 05/29/20 Cholecalciferol (Vitamin D3) [Vitamin D3 1000 Unit Tablet] 1,000 unit PO DAILY #30 tablet 05/29/20 Melatonin [Melatonin 5 mg Tablet] 5 mg PO QHS tablet 05/29/20 Prednisone [Deltasone 20 mg Tablet] 20 mg PO ASDIR PRN #20 tablet 01/16/21 Zinc Sulfate [Zinc-220 Capsule] 220 mg PO DAILY #30 capsule 05/29/20 History of Present Illiness History of Present Illness: Per H&P by Dr. Osorio: ROMERO BACA is a 59 year old female with a history of hypertension and depression who tested positive for COVID-19 on 05/18/2020 now presents to the ED with a progressively worsening shortness of breath. Patient reports that symptoms started about 10 days back and she had fever, generalized body aches, sore throat and dry cough. She states that she was apparently feeling well and her cough was improving but 1 day ago has shortness of breath started getting worse and when she checked here oxygen saturation at home it was ranging around 88 to 90% and came to the ED for further evaluation. Patient states that she still continues to have a dry cough and had a spike of fever about a day ago. She also has associated congestion, and has lost her sense of smell and taste. She denies any nausea, vomiting, abdominal pain, diarrhea or any change in her urinary habits. She was given 1 dose of prednisone yesterday by her primary care before presentation to the ED. Hospital Course Hospital Course: (1) Acute respiratory failure with hypoxia (2) Pneumonia due to COVID-19 virus (3) Hypertension (4) Depression (5) Obesity (BMI 30.0-34.9) (6) GERD 05/26/2020 Acute respiratory failure with hypoxia due to Covid pneumonia-currently down to 1L of NC and doing well so far. received her 2nd dose of Ivermectin today. If she can be weaned off O2 by tomorrow I think she can be eventually discharged as early as tomorrow Hypertension-BP 148/80 which is acceptable. Depression-continue Wellbutrin Obesity-BMI 33.7. Obesity is the known and significant risk factor for complications due to Covid pneumonia. Will monitor closely. Acid reflux-the patient is on Nexium at home. We will substitute pantoprazole. 05/28/2020 Acute respiratory failure with hypoxia due to Covid pneumonia-she is on room air today but still desaturates with minimal exertion. She is anxious for home but I elected and explained to her that spending 1 more night to make sure that she is safe on room air would be prudent. She is home alone. I will decrease her steroids today in anticipation of discharge tomorrow. Hypertension-I will increase her losartan to 50 mg daily in anticipation of resuming Cozaar 50/12.5. Depression-continue Wellbutrin Acid reflux-currently on Protonix. Will return to Nexium at discharge. Obesity-encourage exercise post recovery. She should already be on a low-fat low-salt diet. 05/29/20 Patient was seen on morning rounds. She has completed the MATH+ protocol for treatment of COVID 19. Her remaining symptoms are mild fatigue and dyspnea, though is now maintaining appropriate SpO2 while at rest and ambulating. When ambulating on room air, she becomes mildly tachypnic and tachycardic, but remains conversational and denies diszziness, palpitations, and chest pain. She has maximized her hospital benefit and is stable for discharge to home. Physical Exam Vital Signs: Temp Pulse Resp BP Pulse Ox 97.7 F 90 22 H 154/85 H 93 05/29/20 10:50 05/29/20 10:50 05/29/20 10:50 05/29/20 10:50 05/29/20 10:50 Intake & Output 05/28/20 05/29/20 05/30/20 06:59 06:59 06:59 Intake Total 1050 1248 Balance 1050 1248 Weight 87.2 kg 87.4 kg General appearance: PRESENT: no acute distress, cooperative, well-developed, well-nourished Head exam: PRESENT: atraumatic, normocephalic Eye exam: PRESENT: conjunctiva pink, EOMI, PERRLA. ABSENT: scleral icterus Mouth exam: PRESENT: moist, tongue midline Respiratory exam: PRESENT: clear to auscultation rebeca, symmetrical, unlabored, other - ambulatory on room air. ABSENT: rales, rhonchi, wheezes Cardiovascular exam: PRESENT: RRR. ABSENT: diastolic murmur, rubs, systolic murmur Pulses: PRESENT: normal dorsalis pedis pul Vascular exam: PRESENT: normal capillary refill Extremities exam: PRESENT: full ROM. ABSENT: calf tenderness, clubbing, pedal edema Musculoskeletal exam: PRESENT: ambulatory Neurological exam: PRESENT: alert, awake, oriented to person, oriented to place, oriented to time, oriented to situation, CN II-XII grossly intact. ABSENT: motor sensory deficit Psychiatric exam: PRESENT: appropriate affect, normal mood. ABSENT: homicidal ideation, suicidal ideation Skin exam: PRESENT: dry, intact, warm. ABSENT: cyanosis, rash Results Laboratory Results: WBC 21.0 10^3/uL (4.0-10.5) H 05/29/20 05:05 RBC 4.95 10^6/uL (3.72-5.28) 05/29/20 05:05 Hgb 13.0 g/dL (12.0-15.5) 05/29/20 05:05 Hct 39.3 % (36.0-47.0) 05/29/20 05:05 MCV 79 fl (80-97) L 05/29/20 05:05 MCH 26.3 pg (27.0-33.4) L 05/29/20 05:05 MCHC 33.1 g/dL (32.0-36.0) 05/29/20 05:05 RDW 15.0 % (11.5-14.0) H 05/29/20 05:05 Plt Count 510 10^3/uL (150-450) H 05/29/20 05:05 Lymph % (Auto) Not Reportable 05/29/20 05:05 [place] % (Auto) Not Reportable 05/29/20 05:05 Eos % (Auto) Not Reportable 05/29/20 05:05 Baso % (Auto) Not Reportable 05/29/20 05:05 Absolute Neuts (auto) Not Reportable 05/29/20 05:05 Absolute Lymphs (auto) Not Reportable 05/29/20 05:05 Absolute Monos (auto) Not Reportable 05/29/20 05:05 Absolute Eos (auto) Not Reportable 05/29/20 05:05 Absolute Basos (auto) Not Reportable 05/29/20 05:05 Total Counted 100 05/29/20 05:05 Seg Neutrophils % Not Reportable 05/29/20 05:05 Seg Neuts % (Manual) 88 % (42-78) H 05/29/20 05:05 Lymphocytes % (Manual) 7 % (13-45) L 05/29/20 05:05 Monocytes % (Manual) 5 % (3-13) 05/29/20 05:05 Eosinophils % (Manual) 0 % (0-6) 05/29/20 05:05 Basophils % (Manual) 0 % (0-2) 05/29/20 05:05 Abs Neuts (Manual) 18.5 10^3/uL (1.7-8.2) H 05/29/20 05:05 Abs Lymphs (Manual) 1.5 10^3/uL (0.5-4.7) 05/29/20 05:05 Abs Monocytes (Manual) 1.1 10^3/uL (0.1-1.4) 05/29/20 05:05 Absolute Eos (Manual) 0.0 10^3/uL (0.0-0.6) 05/29/20 05:05 Abs Basophils (Manual) 0.0 10^3/uL (0.0-0.2) 05/29/20 05:05 Platelet Comment ADEQUATE 05/29/20 05:05 Poikilocytosis SLIGHT 05/29/20 05:05 Anisocytosis SLIGHT 05/29/20 05:05 Ovalocytes SLIGHT 05/29/20 05:05 PT 13.4 SEC (11.4-15.4) 05/26/20 04:22 INR 1.00 05/26/20 04:22 APTT 34.7 SEC (23.5-35.8) 05/26/20 04:22 D-Dimer < 0.27 ug/mL (0.00-0.50) 05/26/20 04:22 VBG pH 7.40 (7.30-7.42) 05/26/20 04:22 VBG pCO2 40.0 mmHg (35-63) 05/26/20 04:22 VBG HCO3 24.1 mmol/L (20-32) 05/26/20 04:22 VBG Base Excess -0.6 mmol/L 05/26/20 04:22 Sodium 138.6 mmol/L (137-145) 05/29/20 04:25 Potassium 4.6 mmol/L (3.6-5.0) 05/29/20 04:25 Chloride 105 mmol/L (98-107) 05/29/20 04:25 Carbon Dioxide 23 mmol/L (22-30) 05/29/20 04:25 Anion Gap 11 (5-19) 05/29/20 04:25 BUN 29 mg/dL (7-20) H 05/29/20 04:25 Creatinine 0.77 mg/dL (0.52-1.25) 05/29/20 04:25 Est GFR ( Amer) > 60 (>60) 05/29/20 04:25 Est GFR (MDRD) Non-Af > 60 (>60) 05/29/20 04:25 Glucose 162 mg/dL (75-110) H 05/29/20 04:25 Calcium 9.4 mg/dL (8.4-10.2) 05/29/20 04:25 Magnesium 2.0 mg/dL (1.6-2.3) 05/27/20 05:23 Ferritin 115.00 ng/mL (11.1-264.0) 05/26/20 04:22 Total Bilirubin 0.5 mg/dL (0.2-1.3) 05/29/20 04:25 Direct Bilirubin 0.2 mg/dL (0.0-0.4) 05/29/20 04:25 Neonat Total Bilirubin Not Reportable 05/29/20 04:25 Neonat Direct Bilirubin Not Reportable 05/29/20 04:25 Neonat Indirect Bili Not Reportable 05/29/20 04:25 AST 42 U/L (14-36) H 05/29/20 04:25 ALT 59 U/L (<35) H 05/29/20 04:25 Alkaline Phosphatase 95 U/L (38-126) 05/29/20 04:25 Lactate Dehydrogenase 386 U/L (120-246) H 05/26/20 04:22 Creatine Kinase 108 U/L (30-135) 05/26/20 04:22 C-Reactive Protein 25.0 mg/L (<10.0) H 05/26/20 04:22 Total Protein 6.4 g/dL (6.3-8.2) 05/29/20 04:25 Albumin 3.5 g/dL (3.5-5.0) 05/29/20 04:25 Impressions: Chest X-Ray 05/26/20 03:31 IMPRESSION: Findings consistent with COVID 19 pneumonia. Plan Plan of Treatment: Patient is discharged home in stable condition. She is advised to follow up with her primary provider within 1 week. She is advised that she has completed her quarantine period (>10 days since diagnosis and >48 hour afebrile with mild respiratory symptoms). She is instructed to rest, drink plenty of water, and advance activity slowly. Return to the emergency department, as needed, for concerning symptoms. Time Spent: Greater than 30 Minutes Stroke Is this a Stroke Patient?: No Acute Heart Failure Is this a Heart Failure Patient?: No
== END 2020-05-29 12:28 | disposition home or self-care (01) | DRG 177 ==
LOC: ER 01:23 → EH 06:02 → 3W 11:46 → 3S 20:43
PROVIDERS: ADMIT Student in an Organized Health Care Education/Training Program; ATTEND Registered Nurse
DX: U07.1 COVID-19 (principal); J12.82 Pneumonia due to coronavirus disease 2019; J96.01 Acute respiratory failure with hypoxia; I10 Essential (primary) hypertension; F32.9 Major depressive disorder, single episode, unspecified; K21.9 Gastro-esophageal reflux disease without esophagitis; E66.9 Obesity, unspecified; Z68.33 Body mass index [BMI] 33.0-33.9, adult; R00.0 Tachycardia, unspecified
CPT/HCPCS: 36415; 71045; 80053; 82550; 82728; 82803; 83615; 83735; 85025; 85379; 85610; 85730; 86140; 96374; 99285; J1100; J1650; J2920; J3490